=== PATIENT | female | born 1985 | race Two or more races ===

== ENCOUNTER 2024-08-31 00:07 | Emergency (ER) | payer SELFPAY ==
[~2024-08-31] VITALS: Ht 160 cm; Wt 65.9 kg
[2024-08-31 00:12] VITALS: BP 151/100; PULSE 18; RESP 18; TEMP 98; O2SAT 99
== END 2024-08-31 01:12 | disposition left against medical advice (07) ==
LOC: EMS 00:07
DX: R51.9 Headache, unspecified (principal); Z53.21 Procedure and treatment not carried out due to patient leaving prior to being seen by health care provider